=== PATIENT | female | born 1965 | race Caucasian/White ===

== ENCOUNTER 2016-09-14 12:48 | Day surgery (SDC) | payer OTHER ==
[~2016-09-14 12:48] MED LIST: BUPR75TA10 PO; ESTR1PAT95 TD; GLUC-91 PO; LORA10CA PO; PROG100C3 PO; Sodium Chloride LOK Flush 10 mL Syringe IV PRN; fentaNYL-PF 50 mCg/mL 2 mL Inj IVPUSH PRN
[2016-09-14 13:52] VITALS: BP 128/86; PULSE 65; RESP 14; O2SAT 98
[2016-09-14] MEDS: 0.9% Sodium Chloride 1,000 ML IV PRN ×2 (14:32→14:46)
[2016-09-14 14:59] VITALS: BP 115/77; PULSE 75; RESP 12; O2SAT 95
[2016-09-14 15:10] VITALS: BP 116/71; PULSE 72; RESP 12; O2SAT 95
--- NOTE | 2016-09-14 21:37 | ENDO ---
[address] [address] ENDOSCOPY PROCEDURE PATIENT: GIANLUCA DALEY : 1965 MR#: [id number] ADMIT: 09/14/2016 JOB ID: [id number] PRIMARY PROVIDER: Goldie Marie MD. PROCEDURE: Colonoscopy with cold forceps polypectomy. INDICATIONS: A 51-year-old female who reports for colon cancer screening. EQUIPMENT: PCF-H180AL. SEDATION: 6 mg Versed and 125 mcg fentanyl. COMPLICATIONS: None identified. BOWEL PREPARATION: Fair. Adequate exam. PROCEDURE INFORMATION: After the risks and benefits were explained, written and verbal informed consent was obtained, the patient was brought into the endoscopy suite and placed into the left lateral decubitus position. Sedation was achieved as above. Digital rectal examination accomplished. No significant pathology appreciated. Minimal internal hemorrhoidal cushions noted. The scope was introduced into the rectum and advanced under direct visualization to the cecum as identified by the appendiceal orifice and ileocecal valve. The scope was slowly withdrawn to carefully examine the mucosa for any defects or lesions. Multiple direct views were made through the dentate line for exclusion of pathology. The colon was decompressed, the scope removed from the patient who tolerated the procedure well. FINDINGS: No significant pathology identified from rectum through to the cecum. There was a diminutive hyperplastic-appearing polyp removed with cold forceps, perhaps 3-4 mm in size, down in the rectum. No other significant pathology throughout. ENDOSCOPIC DIAGNOSES: 1. Diminutive, benign-appearing rectal polyp. 2. Mild internal hemorrhoids. RECOMMENDATIONS: 1. Await histopathology. 2. If this polyp is confirmed, hyperplastic, repeat colonoscopy in 10 years' time, sooner should symptoms warrant. 3. If the polyp is returned with adenomatous features, then repeat colonoscopy five years.
--- NOTE | 2016-09-16 11:00 | PATH ---
SURGICAL PATHOLOGY Attending Physician:Sintia Miranda CASE STATUS: Signed Out PATIENT NAME: GIANLUCA DALEY PID: [id number] : 1965 DATE COLLECTED:09/14/2016 00:00 SPECIMEN: Rectum, Biopsy CLINICAL HISTORY: 1). RECTAL POLYP FINAL DIAGNOSIS: Rectal Polyp: Hyperplastic polyp. ICD10 D12.6 GROSS DESCRIPTION: The specimen is received in one formalin filled container labeled with the patient's name, sublabeled "rectal polyp" and consists of a 0.2 x 0.1 x 0.1 CM portion of tissue which is entirely submitted in one cassette. 09[place]15/2016 [facility] [place]: CPT CODES: 1: 13361 Electronically Signed Out Nestor Stringer MD [facility] [address], [place] [address] Technical component performed at [facility], [facility] [address], [place], [address]
== END 2016-09-14 23:59 | disposition home or self-care (01) ==
LOC: END 12:48
PROVIDERS: ATTEND Internal Medicine Gastroenterology
DX: Z12.11 Encounter for screening for malignant neoplasm of colon (principal); K62.1 Rectal polyp; K64.8 Other hemorrhoids; E55.9 Vitamin D deficiency, unspecified; F41.8 Other specified anxiety disorders; E21.0 Primary hyperparathyroidism; M54.89 Other dorsalgia
CPT/HCPCS: 45380; 99153; G0500; J7030